=== PATIENT | female | born 1975 | race Caucasian/White ===

== ENCOUNTER → 2016-12-29 | Outpatient (CLI) | payer OTHER ==
[~2016-12-29] MED LIST: EFFEXOR; MULTIPLE VITAMI1 CAP PO; NORCO 325 MG-7.1 TAB PO; PHENERGAN 25 TA25 MG PO; PHENERGAN25 MG RC
== END ==
LOC: MC.RAD 14:11
DX: D48.62 Neoplasm of uncertain behavior of left breast (principal)

== ENCOUNTER → 2017-01-05 | Outpatient (CLI) | payer OTHER | LOC: MC.RAD 14:00 | DX: N63 Unspecified lump in breast (principal); D24.2 Benign neoplasm of left breast ==

== ENCOUNTER → 2020-05-20 | Outpatient (CLI) | payer OTHER | LOC: ZCOL.LAB 15:14 | DX: Z20.828 Contact with and (suspected) exposure to other viral communicable diseases (principal) ==

== ENCOUNTER 2020-05-30 19:55 | Emergency (ER) | payer OTHER ==
[~2020-05-30] VITALS: Ht 162.6 cm; Wt 93.2 kg
[2020-05-30 20:47] LABS: BASO % 0.1 % (0.0-2.0); EOS # 0.1 (0.0-0.7); EOS % 0.7 % (0-4.0); GRAN # 4.8 (1.4-6.5); GRAN % 55.2 % (42.2-75.2); HEMATOCRIT 46.1 % (37.0-47.0); HEMOGLOBIN 16.1 g/dl (12.5-16.0); LYMPH # 3.3 (1.2-3.4); LYMPH % 38.2 % (20.0-51.0); MEAN CELL VOLUME 92 fl (80.0-100.0); MEAN CORPUSCULAR HEMOGLOBIN 32 pg (27.0-31.0); MEAN CORPUSCULAR HGB CONC 35 g/dl (33.0-37.0); MEAN PLATELET VOLUME 10.3 fl (7.4-10.4); MONO # 0.5 (0.1-0.6); MONO % 5.6 % (1.7-9.3); PLATELET COUNT 330 K/mm3 (130-400); RED BLOOD COUNT 5.04 M/mm3 (4.10-5.30); REDCELL DISTRIBUTION WIDTH-CV 12.2 % (11.5-14.5)
[2020-05-30 20:59] LABS: ALBUMIN 4.5 gm/dL (3.5-5.0); BILIRUBIN,TOTAL 0.6 mg/dL (0.0-1.0); C-REACTIVE PROTEIN 1.3 mg/dL (0.0-0.9); CALCIUM 9.5 mg/dL (8.4-10.2); CREATININE, serum 0.77 (0.52-1.25); POTASSIUM 3.4 mmol/L (3.4-5.0); TOTAL PROTEIN 7.7 gm/dL (6.4-8.2)
[2020-05-30 21:25] LABS: COLLECTION METHOD CLEAN CATCH
[2020-05-30 21:37] LABS: MUCOUS Present /lpf; PH 5 (5-8); URINE APPEARANCE Cloudy; URINE BACTERIA Rare /hpf; URINE BILIRUBIN Negative (NEGATIVE); URINE BLOOD 2+ (NEGATIVE); URINE CALCIUM OXALATE CRYSTAL Present /hpf; URINE COLOR Yellow; URINE GLUCOSE Negative (NEGATIVE); URINE KETONE Negative (NEGATIVE); URINE LEUKOCYTE ESTERASE 1+ (NEGATIVE); URINE NITRATE Negative (NEGATIVE); URINE PROTEIN(semi-quant) 1+ (NEGATIVE); URINE UROBILINOGEN Negative (NEGATIVE)
[2020-05-30 23:00] VITALS: BP 118/64; PULSE 74; TEMP 96.3
== END 2020-05-30 23:02 | disposition home or self-care (01) ==
LOC: COL.ER 19:55
PROVIDERS: Family Medicine
DX: N20.1 Calculus of ureter (principal)
CPT/HCPCS: J1170; J1885; J2270; J2405; J7030; J7120

== ENCOUNTER → 2020-06-10 | Outpatient (CLI) | payer OTHER | LOC: MHCPAIN 14:12 | DX: M47.817 Spondylosis without myelopathy or radiculopathy, lumbosacral region (principal); M54.5 Low back pain; M53.3 Sacrococcygeal disorders, not elsewhere classified | CPT/HCPCS: G0463 ==

== ENCOUNTER → 2021-03-05 | Outpatient (CLI) | payer OTHER | LOC: MC.RAD 09:21 | DX: Z12.31 Encounter for screening mammogram for malignant neoplasm of breast (principal) ==

== ENCOUNTER 2022-03-05 09:00 | Outpatient (RCR) | payer OTHER | END 2022-03-06 | disposition home or self-care (01) | LOC: WSOT | DX: M79.601 Pain in right arm (principal) ==

== ENCOUNTER 2022-03-19 11:00 | Outpatient (RCR) | payer OTHER | END 2022-04-06 | disposition home or self-care (01) | LOC: WSOT | DX: M79.601 Pain in right arm (principal) ==

== ENCOUNTER 2022-09-08 23:49 | Emergency (ER) | payer OTHER ==
[~2022-09-08] VITALS: Ht 162.6 cm; Wt 98.2 kg
[2022-09-08 23:55] VITALS: TEMP 98.5
[2022-09-09 00:55] LABS: BASO % 0.1 % (0.0-2.0); EOS # 0.5 K/mm3 (0.0-0.7); EOS % 5.7 % (0.0-4.0); GRAN # 4.9 K/mm3 (1.4-6.5); GRAN % 58.4 % (42.2-75.2); HEMATOCRIT 45.4 % (37.0-47.0); HEMOGLOBIN 16.3 g/dl (12.5-16.0); LYMPH # 2.6 K/mm3 (1.2-3.4); LYMPH % 30.4 % (20.0-51.0); MEAN CELL VOLUME 88 fl (80.0-100.0); MEAN CORPUSCULAR HEMOGLOBIN 32 pg (27-31); MEAN CORPUSCULAR HGB CONC 36 g/dl (33.0-37.0); MEAN PLATELET VOLUME 10.6 fl (7.4-10.4); MONO # 0.5 K/mm3 (0.1-0.6); MONO % 5.3 % (1.7-9.3); PLATELET COUNT 375 K/mm3 (130-400); RED BLOOD COUNT 5.14 M/mm3 (4.10-5.30)
[2022-09-09 01:12] LABS: ALBUMIN 3.8 gm/dL (3.5-5.0); BILIRUBIN,TOTAL 0.4 mg/dL (0.2-1.2); C-REACTIVE PROTEIN 0.46 mg/dL (0.00-0.50); CALCIUM 9.7 mg/dL (8.4-10.2); CREATININE, serum 0.78 mg/dL (0.57-1.11); POTASSIUM 3.7 mmol/L (3.5-4.5); TOTAL PROTEIN 7.1 gm/dL (6.2-8.1)
[2022-09-09 01:51] LABS: COLLECTION METHOD CLEAN CATCH
[2022-09-09 02:04] LABS: URINE COLOR Yellow (YELLOW)
[2022-09-09 02:05] LABS: PH 5.5 (5.0-8.5); URINE APPEARANCE Clear (CLEAR/HAZY); URINE BLOOD 2+ (NEGATIVE); URINE GLUCOSE Negative (NEGATIVE); URINE KETONE Negative (NEGATIVE); URINE NITRATE Negative (NEGATIVE); URINE PROTEIN(semi-quant) Negative (NEGATIVE); URINE UROBILINOGEN 0.2 E.U/dL (0.2-1.0)
[2022-09-09 02:06] LABS: MUCOUS Present (NOT PRESENT); URINE BACTERIA None Seen /hpf (NONE SEEN); URINE RBC 20-50 /hpf (0-2)
[2022-09-09] MEDS ORDERED: ULTRAM 50MG TAB50 MG PO (04:09)
[2022-09-09 04:21] VITALS: BP 136/84; PULSE 98
== END 2022-09-09 04:19 | disposition home or self-care (01) ==
LOC: COL.ER 23:49
PROVIDERS: Nurse Practitioner
DX: R10.33 Periumbilical pain (principal); F17.210 Nicotine dependence, cigarettes, uncomplicated; Z88.5 Allergy status to narcotic agent; Z28.310 Unvaccinated for COVID-19
CPT/HCPCS: J1170; J1200; J2405; J2930; J7030; Q9967

== ENCOUNTER → 2024-07-24 | Outpatient (CLI) | payer OTHER ==
[2005-02-25 12:12] VITALS: PULSE 87; TEMP 99.8
[~2024-07-24] MED LIST changes: +ULTRAM 50MG TAB50 MG PO
== END ==
LOC: MC.RAD 08:47
DX: Z12.31 Encounter for screening mammogram for malignant neoplasm of breast (principal)